=== PATIENT | male | born 1940 | race African-American/Black ===

== ENCOUNTER 2023-10-10 19:08 | Inpatient (IN) | payer OTHER ==
[~2023-10-10] VITALS: Ht 160 cm; Wt 83.9 kg
[2023-10-10 19:31] VITALS: BP_SYST 132; PULSE 79; RESP 19; TEMP 97.9; O2SAT 98
[2023-10-10 20:08] LABS: BASOPHILS % (AUTO) 0.3 % (0.0-2.0); EOSINOPHILS # (AUTO) 0.2 K/uL (0.0-0.4); HEMATOCRIT 42.1 % (36-54); HEMOGLOBIN 14.6 g/dL (14.0-18.0); LYMPHOCYTES # (AUTO) 3.3 K/uL (1.0-5.5); LYMPHOCYTES % (AUTO) 42.8 % (20.5-51.5); MEAN CORPUSCULAR HEMOGLOBIN 32 pg (27-31); MEAN CORPUSCULAR HGB CONC 35 % (32-36); MEAN CORPUSCULAR VOLUME 93 fL (79.0-98.0); MONOCYTES # (AUTO) 0.7 K/uL (0.0-1.0); MONOCYTES % (AUTO) 8.7 % (1.7-9.3); NEUTROPHILS # (AUTO) 3.5 K/uL (1.8-7.7); NEUTROPHILS % (AUTO) 46.2 % (40.0-70.0); PLATELET COUNT (AUTO) 296 K/uL (130-430); RED BLOOD CELL COUNT(AUTO) 4.55 MIL/uL (4.2-6.2); RED CELL DISTRIBUTION WIDTH 13.1 % (9.0-15.0); WHITE BLOOD COUNT (AUTO) 7.7 K/uL (4.8-10.8)
[2023-10-10 20:21] LABS: ANION GAP 9 (5-15); CALCIUM 9.6 mg/dL (8.4-11.0); CARBON DIOXIDE 27 mmol/L (23-29); CHLORIDE 106 mmol/L (98-107); CREATININE 1.04 mg/dL (0.55-1.30); GLUCOSE 108 mg/dL (74-106); POTASSIUM 4.2 mmol/L (3.5-5.1); SODIUM SERUM 142 mmol/L (136-145); UREA NITROGEN, BLOOD 14 mg/dL (8-21)
[2023-10-10 20:27] LABS: ALANINE AMINOTRANSFERASE 36 U/L (12-78); ALBUMIN 3.7 g/dL (3.4-4.8); ASPARTATE AMINOTRANSFERASE 13 U/L (10-37); BILIRUBIN,DIRECT 0.2 mg/dL (0.0-0.3); CREATINE KINASE, TOTAL 76 U/L (39-308); TOTAL BILIRUBIN 0.8 mg/dL (0.0-1.0); TOTAL PROTEIN, SERUM 7.1 g/dL (6.4-8.3)
[2023-10-10 20:35] LABS: INR 1.1 (0.80-1.20); PROTHROMBIN TIME 11.1 SECS (9.5-12.5)
[2023-10-10 20:39] LABS: ACETONE, SERUM NEGATIVE (NEGATIVE)
[2023-10-10 21:38] LABS: BILIRUBIN,URINE NEGATIVE (NEGATIVE); BLOOD, URINE NEGATIVE (NEGATIVE); CLARITY/URINE CLEAR (CLEAR); COLOR,URINE YELLOW (YELLOW); GLUCOSE,URINE NEGATIVE (NEGATIVE); KETONES,URINE 2+ (NEGATIVE); LEUKOCYTE ESTERASE ,URINE TRACE (NEGATIVE); NITRITE, URINE POSITIVE (NEGATIVE); PROTEIN URINE 1+ (NEGATIVE)
[2023-10-10] MEDS ORDERED: ASPIRIN 81 MG TAB.CHEW PO ONE (21:45)
[2023-10-10 21:46] LABS: BACTERIA,URINE MODERATE /HPF (None Seen); MUCUS,URINE None Seen /LPF (None Seen); RBC,URINE NONE SEEN /HPF (0-3)
[2023-10-10] MEDS ORDERED: LORazepam 2 MG/ML VIAL IVP ONE (22:00)
[2023-10-10] MEDS ORDERED: HYDROcodone/ACETAMIN 10-325 MG TAB PO PRN (22:15)
[2023-10-10] MEDS ORDERED: ACETAMINOPHEN 325 MG TABLET PO PRN (22:15)
[2023-10-10] MEDS ORDERED: HYDROcodone/ACETAMIN 5-325 MG TAB (NORCO/ VICODIN) PO PRN (22:15)
[2023-10-10] MEDS ORDERED: MORPHINE 4 MG INJ. 4 MG/ML VIAL IVP PRN (22:15)
[2023-10-10] MEDS ORDERED: NACL 0.9% 1,000 ML IV ONE (22:15)
[2023-10-10] MEDS ORDERED: ONDANSETRON HCL 4 MG/2 ML VIAL IVP PRN (22:15)
[2023-10-10] MEDS ORDERED: OLME40TA70 PO (22:45)
[2023-10-10] MEDS ORDERED: NIFE-129 PO (22:45)
[2023-10-10] MEDS ORDERED: CARV6.2554 PO (22:45)
[2023-10-10] MEDS ORDERED: IBUP-1969 PO (22:45)
[2023-10-10] MEDS ORDERED: HYDR-4037 PO (22:45)
[2023-10-10] MEDS ORDERED: PIOG30TA70 PO (22:45)
[2023-10-11 04:14] LABS: BASOPHILS % (AUTO) 0.5 % (0.0-2.0); EOSINOPHILS # (AUTO) 0.1 K/uL (0.0-0.4); EOSINOPHILS % (AUTO) 1.3 % (0.0-4.0); HEMATOCRIT 38.6 % (36-54); HEMOGLOBIN 13.3 g/dL (14.0-18.0); LYMPHOCYTES # (AUTO) 3.6 K/uL (1.0-5.5); LYMPHOCYTES % (AUTO) 40.6 % (20.5-51.5); MEAN CORPUSCULAR HEMOGLOBIN 32 pg (27-31); MEAN CORPUSCULAR HGB CONC 34 % (32-36); MEAN CORPUSCULAR VOLUME 93 fL (79.0-98.0); MONOCYTES # (AUTO) 0.8 K/uL (0.0-1.0); MONOCYTES % (AUTO) 9.3 % (1.7-9.3); NEUTROPHILS # (AUTO) 4.2 K/uL (1.8-7.7); NEUTROPHILS % (AUTO) 48.3 % (40.0-70.0); PLATELET COUNT (AUTO) 270 K/uL (130-430); RED BLOOD CELL COUNT(AUTO) 4.14 MIL/uL (4.2-6.2); RED CELL DISTRIBUTION WIDTH 13.2 % (9.0-15.0); WHITE BLOOD COUNT (AUTO) 8.8 K/uL (4.8-10.8)
[2023-10-11 04:32] LABS: ALANINE AMINOTRANSFERASE 32 U/L (12-78); ALBUMIN 3.3 g/dL (3.4-4.8); ANION GAP 11 (5-15); ASPARTATE AMINOTRANSFERASE 15 U/L (10-37); CALCIUM 8.5 mg/dL (8.4-11.0); CARBON DIOXIDE 25 mmol/L (23-29); CHLORIDE 108 mmol/L (98-107); CREATININE 1.06 mg/dL (0.55-1.30); GLUCOSE 101 mg/dL (74-106); POTASSIUM 3.5 mmol/L (3.5-5.1); SODIUM SERUM 144 mmol/L (136-145); TOTAL BILIRUBIN 0.7 mg/dL (0.0-1.0); TOTAL PROTEIN, SERUM 6.5 g/dL (6.4-8.3); UREA NITROGEN, BLOOD 21 mg/dL (8-21)
[2023-10-11] MEDS: ASPIRIN 81 MG TAB.CHEW PO SCH (09:32)
[2023-10-11] MEDS ORDERED: cefTRIAXone 1 GM in D5W 50 ML IV SCH (13:00)
[2023-10-11] MEDS ORDERED: GLUCOSE (DEXTROSE) ORAL GEL -Adults PO PRN (13:00)
[2023-10-11] MEDS ORDERED: DEXTROSE 50% JECT 50 ML DISP.SYRIN IVP PRN (13:00)
[2023-10-11] MEDS ORDERED: INSULIN REGULAR, HUMAN 100 UNITS/ML, 3 ML VIAL (humuLIN R) SUBCUT PRN (13:00)
[2023-10-11] MEDS ORDERED: NIFEdipine 30 MG TAB.ER.24 PO ONE (13:15)
[2023-10-11] MEDS ORDERED: PANTOPRAZOLE SODIUM 40 MG TAB PO ONE (13:15)
[2023-10-11] MEDS ORDERED: CARVEDILOL 6.25 MG TABLET (COREG) PO ONE (13:15)
[2023-10-11] MEDS: cefTRIAXone 1 GM in D5W 50 ML IV SCH (13:51)
[2023-10-11] MEDS ORDERED: cefTRIAXone 1 GM in D5W 50 ML IV ONE (14:00)
[2023-10-11] MEDS: NACL 0.9% 1,000 ML IV SCH ×2 (14:03→23:00)
[2023-10-11] MEDS ORDERED: hydrALAZINE HCL 20 MG/ML VIAL IVP PRN (15:15)
[2023-10-11 16:16] VITALS: BP_SYST 160; PULSE 79; RESP 18; TEMP 99; O2SAT 98
[2023-10-11 20:00] VITALS: BP_SYST 165; PULSE 84; RESP 18; TEMP 97.7; O2SAT 95
[2023-10-11] MEDS: CARVEDILOL 6.25 MG TABLET (COREG) PO SCH (20:29)
[2023-10-11 21:00] VITALS: BP_SYST 157; PULSE 87; RESP 18; TEMP 97.5; O2SAT 96
[2023-10-12] VITALS: BP_SYST 153; PULSE 83; RESP 18; TEMP 98; O2SAT 99
[2023-10-12 06:27] LABS: BASOPHILS % (AUTO) 0.7 % (0.0-2.0); EOSINOPHILS # (AUTO) 0.2 K/uL (0.0-0.4); EOSINOPHILS % (AUTO) 3.5 % (0.0-4.0); HEMATOCRIT 41.4 % (36-54); HEMOGLOBIN 14.2 g/dL (14.0-18.0); LYMPHOCYTES # (AUTO) 3.4 K/uL (1.0-5.5); MEAN CORPUSCULAR HEMOGLOBIN 32 pg (27-31); MEAN CORPUSCULAR HGB CONC 34 % (32-36); MEAN CORPUSCULAR VOLUME 93 fL (79.0-98.0); MONOCYTES # (AUTO) 0.5 K/uL (0.0-1.0); MONOCYTES % (AUTO) 7.2 % (1.7-9.3); NEUTROPHILS # (AUTO) 2.9 K/uL (1.8-7.7); NEUTROPHILS % (AUTO) 40.6 % (40.0-70.0); PLATELET COUNT (AUTO) 274 K/uL (130-430); RED BLOOD CELL COUNT(AUTO) 4.45 MIL/uL (4.2-6.2); RED CELL DISTRIBUTION WIDTH 13.4 % (9.0-15.0); WHITE BLOOD COUNT (AUTO) 7.1 K/uL (4.8-10.8)
[2023-10-12 06:35] LABS: ALANINE AMINOTRANSFERASE 33 U/L (12-78); ALBUMIN 3.4 g/dL (3.4-4.8); ANION GAP 9 (5-15); ASPARTATE AMINOTRANSFERASE 14 U/L (10-37); CALCIUM 9.3 mg/dL (8.4-11.0); CARBON DIOXIDE 25 mmol/L (23-29); CHLORIDE 109 mmol/L (98-107); CREATININE 0.91 mg/dL (0.55-1.30); GLUCOSE 115 mg/dL (74-106); POTASSIUM 3.6 mmol/L (3.5-5.1); SODIUM SERUM 143 mmol/L (136-145); TOTAL BILIRUBIN 0.8 mg/dL (0.0-1.0); TOTAL PROTEIN, SERUM 6.8 g/dL (6.4-8.3); UREA NITROGEN, BLOOD 10 mg/dL (8-21)
[2023-10-12 08:00] VITALS: BP_SYST 157; PULSE 92; RESP 18; TEMP 98.8; O2SAT 95
[2023-10-12] MEDS: ASPIRIN 81 MG TAB.CHEW PO SCH (09:21)
[2023-10-12] MEDS: NACL 0.9% 1,000 ML IV SCH ×2 (09:21→20:02)
[2023-10-12] MEDS: PANTOPRAZOLE SODIUM 40 MG TAB PO SCH (09:22)
[2023-10-12] MEDS: CARVEDILOL 6.25 MG TABLET (COREG) PO SCH ×2 (09:22→21:02)
[2023-10-12] MEDS: NIFEdipine 30 MG TAB.ER.24 PO SCH (09:32)
[2023-10-12 11:01] VITALS: O2SAT 95
[2023-10-12 11:16] VITALS: BP_SYST 166; PULSE 90; RESP 16; TEMP 97.9; O2SAT 98
[2023-10-12] MEDS: cefTRIAXone 1 GM in D5W 50 ML IV SCH (15:18)
[2023-10-12 15:26] VITALS: BP_SYST 177; PULSE 89; RESP 15; TEMP 96.6; O2SAT 96
[2023-10-12 20:00] VITALS: BP_SYST 156; PULSE 93; RESP 18; TEMP 98.2; O2SAT 98
[2023-10-13] VITALS: BP_SYST 166; PULSE 86; RESP 18; TEMP 98.3; O2SAT 97
[2023-10-13 04:00] VITALS: BP_SYST 159; PULSE 84; RESP 18; TEMP 98; O2SAT 98
[2023-10-13] MEDS: NACL 0.9% 1,000 ML IV SCH (05:00)
[2023-10-13 05:42] LABS: BASOPHILS % (AUTO) 0.6 % (0.0-2.0); EOSINOPHILS # (AUTO) 0.3 K/uL (0.0-0.4); EOSINOPHILS % (AUTO) 3.6 % (0.0-4.0); HEMATOCRIT 41.7 % (36-54); HEMOGLOBIN 14.4 g/dL (14.0-18.0); LYMPHOCYTES # (AUTO) 3.4 K/uL (1.0-5.5); LYMPHOCYTES % (AUTO) 47.1 % (20.5-51.5); MEAN CORPUSCULAR HEMOGLOBIN 32 pg (27-31); MEAN CORPUSCULAR HGB CONC 35 % (32-36); MEAN CORPUSCULAR VOLUME 93 fL (79.0-98.0); MONOCYTES # (AUTO) 0.4 K/uL (0.0-1.0); MONOCYTES % (AUTO) 6.1 % (1.7-9.3); NEUTROPHILS # (AUTO) 3.1 K/uL (1.8-7.7); NEUTROPHILS % (AUTO) 42.6 % (40.0-70.0); PLATELET COUNT (AUTO) 288 K/uL (130-430); RED BLOOD CELL COUNT(AUTO) 4.49 MIL/uL (4.2-6.2); RED CELL DISTRIBUTION WIDTH 13.1 % (9.0-15.0); WHITE BLOOD COUNT (AUTO) 7.2 K/uL (4.8-10.8)
[2023-10-13 06:12] LABS: ALANINE AMINOTRANSFERASE 30 U/L (12-78); ALBUMIN 3.4 g/dL (3.4-4.8); ANION GAP 12 (5-15); ASPARTATE AMINOTRANSFERASE 13 U/L (10-37); CALCIUM 9.1 mg/dL (8.4-11.0); CARBON DIOXIDE 25 mmol/L (23-29); CHLORIDE 106 mmol/L (98-107); CREATININE 0.87 mg/dL (0.55-1.30); GLUCOSE 124 mg/dL (74-106); POTASSIUM 3.1 mmol/L (3.5-5.1); SODIUM SERUM 143 mmol/L (136-145); TOTAL BILIRUBIN 0.7 mg/dL (0.0-1.0); UREA NITROGEN, BLOOD 10 mg/dL (8-21)
[2023-10-13 08:00] VITALS: BP_SYST 163; PULSE 101; RESP 18; TEMP 98.5; O2SAT 98
[2023-10-13] MEDS: PANTOPRAZOLE SODIUM 40 MG TAB PO SCH (09:44)
[2023-10-13] MEDS: CARVEDILOL 6.25 MG TABLET (COREG) PO SCH (09:44)
[2023-10-13] MEDS: ASPIRIN 81 MG TAB.CHEW PO SCH (09:44)
[2023-10-13] MEDS: NIFEdipine 30 MG TAB.ER.24 PO SCH (09:45)
[2023-10-13] MEDS ORDERED: CARVEDILOL 6.25 MG TABLET (COREG) PO ONE (10:30)
[2023-10-13] MEDS ORDERED: NIFEdipine 30 MG TAB.ER.24 PO ONE (11:00)
[2023-10-13] MEDS ORDERED: ASA81 PO (11:34)
[2023-10-13] MEDS ORDERED: COR12.5 PO (11:34)
[2023-10-13] MEDS ORDERED: NIFE90TA24 PO (11:34)
[2023-10-13 12:01] VITALS: BP_SYST 154; PULSE 91; RESP 17; O2SAT 98
[2023-10-13] MEDS: cefTRIAXone 1 GM in D5W 50 ML IV SCH (15:09)
[2023-10-13 18:30] VITALS: BP_SYST 136; PULSE 113; RESP 17; TEMP 98.5; O2SAT 98
[2023-10-13] MEDS ORDERED: CARVEDILOL 12.5 MG TABLET (COREG) PO SCH (21:00)
[2023-10-14] MEDS ORDERED: NIFEDIPINE 90 MG TABLET.SA (PROCARDIA XL 90 MG) PO SCH (09:00)
== END 2023-10-13 19:15 | disposition home or self-care (01) | DRG 641 ==
LOC: SED 19:08 → STU 22:07 → SMU 10-11 16:18 → STU 10-11 20:11 → SMU 10-13 02:01
PROVIDERS: ADMIT Family Medicine; ATTEND Family Medicine
DX: E86.0 Dehydration (principal); N39.0 Urinary tract infection, site not specified; I10 Essential (primary) hypertension; E11.9 Type 2 diabetes mellitus without complications; E78.5 Hyperlipidemia, unspecified; Z88.8 Allergy status to other drugs, medicaments and biological substances; Z91.013 Allergy to seafood; Z85.46 Personal history of malignant neoplasm of prostate; Z90.79 Acquired absence of other genital organ(s); Z87.891 Personal history of nicotine dependence; Z90.49 Acquired absence of other specified parts of digestive tract
CPT/HCPCS: 36415; 70450-TC; 71045; 76376; 80048; 80053; 80076; 81000; 81001; 81015; 82009; 82550; 82962; 83037; 83605; 84484; 85025; 85610; 85730; 87086; 92610-GN; 93005; 93306; 93880; 96361; 96365; 97116-GP; 97530-GP; 99285; G0378; J0696; J7060

== ENCOUNTER 2023-10-19 02:15 | Inpatient (IN) | payer OTHER ==
[~2023-10-19] VITALS: Ht 160 cm; Wt 84.4 kg
[~2023-10-19 02:15] MED LIST: ASA81 PO; COR12.5 PO; HYDR-4037 PO; IBUP-1969 PO; NIFE90TA24 PO; OLME40TA70 PO; PIOG30TA70 PO
[2023-10-19 02:18] VITALS: BP_SYST 157; PULSE 89; RESP 19; TEMP 97.9; O2SAT 97
[2023-10-19] MEDS ORDERED: iohexoL 350 mgI/mL, 100 ML INFUS..BTL IV ONE (02:45)
[2023-10-19] MEDS ORDERED: DIPHENHYDRAMINE INJ 50 MG/ML VIAL ONE (02:45)
[2023-10-19] MEDS ORDERED: methylPREDNISolone SOD SUCC/PF 62.5 MG/ML VIAL ONE (02:45)
[2023-10-19 02:53] LABS: ANION GAP 11 (5-15); CALCIUM 9.5 mg/dL (8.4-11.0); CARBON DIOXIDE 24 mmol/L (23-29); CHLORIDE 107 mmol/L (98-107); CREATININE 0.99 mg/dL (0.55-1.30); GLUCOSE 131 mg/dL (74-106); POTASSIUM 3.7 mmol/L (3.5-5.1); SODIUM SERUM 142 mmol/L (136-145); UREA NITROGEN, BLOOD 13 mg/dL (8-21)
[2023-10-19 03:05] LABS: INR 1.1 (0.80-1.20)
[2023-10-19] MEDS: DIPHENHYDRAMINE INJ 50 MG/ML VIAL IVP ONE (03:06)
[2023-10-19] MEDS: methylPREDNISolone SOD SUCC/PF 62.5 MG/ML VIAL IVP ONE (03:07)
[2023-10-19 03:32] LABS: BILIRUBIN,URINE NEGATIVE (NEGATIVE); BLOOD, URINE NEGATIVE (NEGATIVE); CLARITY/URINE CLEAR (CLEAR); COLOR,URINE YELLOW (YELLOW); GLUCOSE,URINE NEGATIVE (NEGATIVE); KETONES,URINE NEGATIVE (NEGATIVE); LEUKOCYTE ESTERASE ,URINE NEGATIVE (NEGATIVE); NITRITE, URINE NEGATIVE (NEGATIVE); PROTEIN URINE NEGATIVE (NEGATIVE); UROBILINOGEN,URINE 0.2 (0.2-1.0)
[2023-10-19 03:51] LABS: BARBITURATE, URINE NEGATIVE (NEG <=200); BENZODIAZEPINE, URINE NEGATIVE (NEG <=150); CANNABINOID, URINE NEGATIVE (NEG <=50); COCAINE, URINE NEGATIVE (NEG <=150); METHAMPHETAMINES SCREEN,URINE NEGATIVE (NEG <=500); OPIATE, URINE NEGATIVE (NEG <=100); PHENCYCLIDINE SCREEN,URINE NEGATIVE (NEG <=25); UR TRICYCLIC ANTIDEPRESSANTS NEGATIVE (NEG <=300); URINE AMPHETAMINE NEGATIVE (NEG <=500); URINE METHADONE NEGATIVE (NEG <=200); URINE OXYCODONE SCREEN NEGATIVE (NEG <=100)
[2023-10-19] MEDS: CLOPIDOGREL BISULFATE 75 MG TABLET PO ONE (03:58)
[2023-10-19] MEDS: ASPIRIN 325 MG TABLET PO ONE (03:58)
[2023-10-19 04:10] LABS: BASOPHILS % (AUTO) 0.6 % (0.0-2.0); EOSINOPHILS # (AUTO) 0.2 K/uL (0.0-0.4); EOSINOPHILS % (AUTO) 2.9 % (0.0-4.0); HEMATOCRIT 40.4 % (36-54); LYMPHOCYTES # (AUTO) 2.9 K/uL (1.0-5.5); LYMPHOCYTES % (AUTO) 41.1 % (20.5-51.5); MEAN CORPUSCULAR HEMOGLOBIN 32 pg (27-31); MEAN CORPUSCULAR HGB CONC 35 % (32-36); MEAN CORPUSCULAR VOLUME 93 fL (79.0-98.0); MONOCYTES # (AUTO) 0.7 K/uL (0.0-1.0); MONOCYTES % (AUTO) 9.1 % (1.7-9.3); NEUTROPHILS # (AUTO) 3.3 K/uL (1.8-7.7); NEUTROPHILS % (AUTO) 46.3 % (40.0-70.0); PLATELET COUNT (AUTO) 272 K/uL (130-430); RED BLOOD CELL COUNT(AUTO) 4.37 MIL/uL (4.2-6.2); RED CELL DISTRIBUTION WIDTH 13.1 % (9.0-15.0); WHITE BLOOD COUNT (AUTO) 7.2 K/uL (4.8-10.8)
[2023-10-19 04:20] LABS: HEMOGLOBIN A1C 6.33 % (<5.7)
[2023-10-19] MEDS ORDERED: ONDANSETRON HCL 4 MG/2 ML VIAL IVP PRN (13:00)
[2023-10-19] MEDS ORDERED: HYDROcodone/ACETAMIN 5-325 MG TAB (NORCO/ VICODIN) PO PRN (13:00)
[2023-10-19] MEDS ORDERED: ACETAMINOPHEN 325 MG TABLET PO PRN ×2 (13:00→13:30)
[2023-10-19] MEDS ORDERED: LORazepam 2 MG/ML VIAL IVP PRN (13:00)
[2023-10-19] MEDS ORDERED: NALOXONE HCL 0.4 MG/ML AMP (NARCAN) IVP PRN ×2 (13:00)
[2023-10-19] MEDS: NORMAL SALINE 5 ML DISP.SYRIN IVF SCH (14:23)
[2023-10-19] MEDS: ASPIRIN 81 MG TAB.CHEW PO ONE (14:23)
[2023-10-19] MEDS: PIOGLITAZONE HCL 15 MG TABLET PO ONE (15:38)
[2023-10-19] MEDS ORDERED: INSULIN REGULAR, HUMAN 10 UNITS/0.1 ML, 3 ML VIAL ONE (17:22)
[2023-10-19] MEDS: INSULIN REGULAR, HUMAN 100 UNITS/ML, 3 ML VIAL (humuLIN R) SUBCUT PRN (17:25)
[2023-10-19] MEDS: CARVEDILOL 12.5 MG TABLET (COREG) PO SCH (20:29)
[2023-10-19] MEDS: LOSARTAN POTASSIUM 50 MG TABLET (COZAAR) PO SCH (20:30)
[2023-10-19] MEDS: ATORVASTATIN 20 MG TABLET PO SCH (20:31)
[2023-10-19] MEDS ORDERED: OLMESARTAN MEDOXOMIL 20 MG TABLET PO SCH (21:00)
[2023-10-20] MEDS: cloNIDine HCL 0.2 MG TABLET PO PRN (00:40)
[2023-10-20] MEDS ORDERED: cloNIDine HCL 0.1 MG TABLET ONE (00:41)
[2023-10-20] MEDS: HYDROcodone/ACETAMIN 10-325 MG TAB PO PRN (00:42)
[2023-10-20] MEDS ORDERED: HYDROcodone/ACETAMIN 10-325 MG TAB ONE (00:48)
[2023-10-20 08:13] LABS: BASOPHILS # (AUTO) 0.1 K/uL (0.0-0.2); BASOPHILS % (AUTO) 0.5 % (0.0-2.0); EOSINOPHILS % (AUTO) 0.4 % (0.0-4.0); HEMATOCRIT 40.9 % (36-54); LYMPHOCYTES # (AUTO) 3.7 K/uL (1.0-5.5); LYMPHOCYTES % (AUTO) 28.6 % (20.5-51.5); MEAN CORPUSCULAR HEMOGLOBIN 32 pg (27-31); MEAN CORPUSCULAR HGB CONC 34 % (32-36); MEAN CORPUSCULAR VOLUME 93 fL (79.0-98.0); MONOCYTES # (AUTO) 0.9 K/uL (0.0-1.0); MONOCYTES % (AUTO) 7.1 % (1.7-9.3); NEUTROPHILS # (AUTO) 8.1 K/uL (1.8-7.7); NEUTROPHILS % (AUTO) 63.4 % (40.0-70.0); PLATELET COUNT (AUTO) 273 K/uL (130-430); RED BLOOD CELL COUNT(AUTO) 4.39 MIL/uL (4.2-6.2); RED CELL DISTRIBUTION WIDTH 13.1 % (9.0-15.0); WHITE BLOOD COUNT (AUTO) 12.8 K/uL (4.8-10.8)
[2023-10-20 08:44] LABS: ALANINE AMINOTRANSFERASE 21 U/L (12-78); ALBUMIN 3.2 g/dL (3.4-4.8); ANION GAP 10 (5-15); ASPARTATE AMINOTRANSFERASE 16 U/L (10-37); CALCIUM 8.8 mg/dL (8.4-11.0); CARBON DIOXIDE 24 mmol/L (23-29); CHLORIDE 105 mmol/L (98-107); CREATININE 0.96 mg/dL (0.55-1.30); GLUCOSE 112 mg/dL (74-106); PHOSPHORUS 3.8 mg/dL (2.7-4.5); POTASSIUM 3.5 mmol/L (3.5-5.1); SODIUM SERUM 139 mmol/L (136-145); TOTAL BILIRUBIN 0.6 mg/dL (0.0-1.0); TOTAL PROTEIN, SERUM 7.1 g/dL (6.4-8.3); UREA NITROGEN, BLOOD 15 mg/dL (8-21)
[2023-10-20] MEDS ORDERED: NIFEDIPINE 90 MG TABLET.SA (PROCARDIA XL 90 MG) PO SCH (09:00)
[2023-10-20] MEDS: CLOPIDOGREL BISULFATE 75 MG TABLET PO SCH (09:20)
[2023-10-20] MEDS: PIOGLITAZONE HCL 15 MG TABLET PO SCH (09:21)
[2023-10-20] MEDS: ASPIRIN 81 MG TABLET(ECOTRIN) PO SCH (09:21)
[2023-10-20 09:46] LABS: CHOLESTEROL 145 mg/dL (<200); HDL CHOLESTEROL 48 mg/dL (>45); TRIGLYCERIDES 80 mg/dL (30-150)
[2023-10-20 15:52] VITALS: BP_SYST 184; PULSE 68; RESP 20; TEMP 97.9; O2SAT 98
[2023-10-20 18:10] VITALS: BP_SYST 184; PULSE 68; RESP 20; TEMP 97.9; O2SAT 98
[2023-10-20 20:00] VITALS: BP_SYST 174; PULSE 81; RESP 18; TEMP 97.8; O2SAT 96
[2023-10-21 00:32] VITALS: BP_SYST 158; PULSE 81; RESP 17; TEMP 96.6; O2SAT 99
[2023-10-21 06:28] LABS: BASOPHILS % (AUTO) 0.5 % (0.0-2.0); EOSINOPHILS # (AUTO) 0.2 K/uL (0.0-0.4); EOSINOPHILS % (AUTO) 2.2 % (0.0-4.0); HEMATOCRIT 37.9 % (36-54); HEMOGLOBIN 13.3 g/dL (14.0-18.0); LYMPHOCYTES # (AUTO) 3.6 K/uL (1.0-5.5); LYMPHOCYTES % (AUTO) 43.4 % (20.5-51.5); MEAN CORPUSCULAR HEMOGLOBIN 32 pg (27-31); MEAN CORPUSCULAR HGB CONC 35 % (32-36); MEAN CORPUSCULAR VOLUME 93 fL (79.0-98.0); MONOCYTES # (AUTO) 0.6 K/uL (0.0-1.0); MONOCYTES % (AUTO) 7.2 % (1.7-9.3); NEUTROPHILS # (AUTO) 3.9 K/uL (1.8-7.7); NEUTROPHILS % (AUTO) 46.7 % (40.0-70.0); PLATELET COUNT (AUTO) 262 K/uL (130-430); RED CELL DISTRIBUTION WIDTH 13.3 % (9.0-15.0); WHITE BLOOD COUNT (AUTO) 8.3 K/uL (4.8-10.8)
[2023-10-21 06:46] LABS: ALANINE AMINOTRANSFERASE 21 U/L (12-78); ALBUMIN 2.9 g/dL (3.4-4.8); ANION GAP 10 (5-15); ASPARTATE AMINOTRANSFERASE 8 U/L (10-37); CALCIUM 9.2 mg/dL (8.4-11.0); CARBON DIOXIDE 26 mmol/L (23-29); CHLORIDE 107 mmol/L (98-107); CREATININE 0.98 mg/dL (0.55-1.30); GLUCOSE 108 mg/dL (74-106); SODIUM SERUM 143 mmol/L (136-145); TOTAL BILIRUBIN 0.6 mg/dL (0.0-1.0); TOTAL PROTEIN, SERUM 6.2 g/dL (6.4-8.3); UREA NITROGEN, BLOOD 18 mg/dL (8-21)
[2023-10-21 08:00] VITALS: BP_SYST 162; PULSE 80; RESP 16; TEMP 98.4; O2SAT 96
[2023-10-21] MEDS: POTASSIUM CHLORIDE 20 MEQ/PKT PACKET PO ONE ×2 (10:45→16:50)
[2023-10-21] MEDS: LOSARTAN POTASSIUM 25 MG TABLET PO ONE (10:45)
[2023-10-21 12:00] VITALS: BP_SYST 172; PULSE 65; RESP 16; TEMP 98; O2SAT 98
[2023-10-21] MEDS ORDERED: LOSA-412 PO (14:10)
[2023-10-21] MEDS ORDERED: CLOP75TA32 PO (14:10)
[2023-10-21] MEDS ORDERED: LIP20 PO (14:10)
[2023-10-21] MEDS ORDERED: POTA-197 PO (14:11)
[2023-10-21 15:27] LABS: ANION GAP 10 (5-15); CARBON DIOXIDE 27 mmol/L (23-29); CHLORIDE 106 mmol/L (98-107); CREATININE 1.03 mg/dL (0.55-1.30); GLUCOSE 124 mg/dL (74-106); POTASSIUM 3.8 mmol/L (3.5-5.1); SODIUM SERUM 143 mmol/L (136-145); UREA NITROGEN, BLOOD 15 mg/dL (8-21)
[2023-10-21 16:02] VITALS: BP_SYST 163; PULSE 65; RESP 17; TEMP 98.4; O2SAT 99
[2023-10-21] MEDS ORDERED: NIFEDIPINE 90 MG TABLET.SA (PROCARDIA XL 90 MG) PO ONE (17:00)
[2023-10-21] MEDS: NIFEDIPINE 90 MG TABLET.SA (PROCARDIA XL 90 MG) PO ONE (17:11)
[2023-10-21] MEDS: cloNIDine HCL 0.1 MG TABLET PO ONE (18:51)
[2023-10-21 20:00] VITALS: BP_SYST 177; PULSE 75; RESP 18; TEMP 98.2; O2SAT 96
[2023-10-21] MEDS ORDERED: LOSA-413 PO (20:28)
[2023-10-21] MEDS: LOSARTAN POTASSIUM 50 MG TABLET (COZAAR) PO SCH (20:29)
[2023-10-21] MEDS ORDERED: hydrALAZINE HCL 20 MG/ML VIAL IVP PRN (20:45)
[2023-10-21] MEDS ORDERED: LOSARTAN POTASSIUM 25 MG TABLET PO SCH (21:00)
[2023-10-22] VITALS: BP_SYST 139; PULSE 72; RESP 18; TEMP 98; O2SAT 95
[2023-10-22 04:00] VITALS: BP_SYST 139
[2023-10-22 05:30] VITALS: BP_SYST 141; PULSE 75; RESP 18; TEMP 98.2; O2SAT 97
[2023-10-22 08:00] VITALS: BP_SYST 135; PULSE 76; RESP 17; TEMP 98.2; O2SAT 98
[2023-10-22 08:01] VITALS: O2SAT 98
[2023-10-22 11:19] VITALS: BP_SYST 116; PULSE 73; RESP 16; TEMP 98.5; O2SAT 97
== END 2023-10-22 14:00 | disposition home or self-care (01) | DRG 69 ==
LOC: SED 02:15 → STU 04:08 → SMU 10-21 23:29
PROVIDERS: ADMIT Preventive Medicine Preventive Medicine/Occupational Environmental Medicine; ATTEND Preventive Medicine Preventive Medicine/Occupational Environmental Medicine
DX: G45.9 Transient cerebral ischemic attack, unspecified (principal); E44.0 Moderate protein-calorie malnutrition; E11.9 Type 2 diabetes mellitus without complications; R29.702 NIHSS score 2; E78.5 Hyperlipidemia, unspecified; I10 Essential (primary) hypertension; Z85.46 Personal history of malignant neoplasm of prostate; Z91.013 Allergy to seafood; Z88.8 Allergy status to other drugs, medicaments and biological substances
CPT/HCPCS: 36415; 70450; 70496; 70498; 70551; 71045; 76376; 80048; 80053; 80061; 80307; 81001; 81003; 82962; 83037; 83735; 84100; 84484; 85025; 85610; 85730; 86886; 86900; 86901; 87081; 93005; 97112-GP; 97116-GP; 99285; G0378; J1200; J1815; J2930; Q9967

== ENCOUNTER 2023-11-19 02:14 | Inpatient (IN) | payer OTHER ==
[~2023-11-19] VITALS: Ht 160 cm; Wt 83.9 kg
[2023-11-19] VITALS (10 sets, daily range): BP systolic 110–127; PULSE 80–96; RESP 16–20; TEMP 97.8–98.6; O2SAT 95–100
[~2023-11-19 02:14] MED LIST changes: +CLOP75TA32 PO; -HYDR-4037 PO; -IBUP-1969 PO; +LIP20 PO; +LOSA-412 PO; +LOSA-413 PO; +POTA-197 PO
[2023-11-19 03:17] LABS: BASOPHILS % (AUTO) 0.2 % (0.0-2.0); HEMATOCRIT 35.7 % (36-54); HEMOGLOBIN 12.4 g/dL (14.0-18.0); LYMPHOCYTES # (AUTO) 1.7 K/uL (1.0-5.5); LYMPHOCYTES % (AUTO) 11.4 % (20.5-51.5); MEAN CORPUSCULAR HEMOGLOBIN 32 pg (27-31); MEAN CORPUSCULAR HGB CONC 35 % (32-36); MEAN CORPUSCULAR VOLUME 92 fL (79.0-98.0); MONOCYTES # (AUTO) 0.9 K/uL (0.0-1.0); MONOCYTES % (AUTO) 6.2 % (1.7-9.3); NEUTROPHILS # (AUTO) 12.2 K/uL (1.8-7.7); NEUTROPHILS % (AUTO) 82.2 % (40.0-70.0); PLATELET COUNT (AUTO) 231 K/uL (130-430); RED BLOOD CELL COUNT(AUTO) 3.88 MIL/uL (4.2-6.2); RED CELL DISTRIBUTION WIDTH 13.3 % (9.0-15.0); WHITE BLOOD COUNT (AUTO) 14.8 K/uL (4.8-10.8)
[2023-11-19 03:47] LABS: ALANINE AMINOTRANSFERASE 20 U/L (12-78); ALBUMIN 2.9 g/dL (3.4-4.8); ANION GAP 11 (5-15); ASPARTATE AMINOTRANSFERASE 17 U/L (10-37); CALCIUM 8.4 mg/dL (8.4-11.0); CARBON DIOXIDE 22 mmol/L (23-29); CHLORIDE 105 mmol/L (98-107); CREATININE 1.12 mg/dL (0.55-1.30); GLUCOSE 148 mg/dL (74-106); POTASSIUM 3.7 mmol/L (3.5-5.1); SODIUM SERUM 138 mmol/L (136-145); TOTAL BILIRUBIN 1.2 mg/dL (0.0-1.0); TOTAL PROTEIN, SERUM 6.5 g/dL (6.4-8.3); UREA NITROGEN, BLOOD 18 mg/dL (8-21)
[2023-11-19 03:48] LABS: BILIRUBIN,DIRECT 0.3 mg/dL (0.0-0.3)
[2023-11-19 03:49] LABS: ALCOHOL, BLOOD < 3 mg/dL (<10)
[2023-11-19 03:51] LABS: INR 1.1 (0.80-1.20); PROTHROMBIN TIME 11.5 SECS (9.5-12.5)
[2023-11-19 06:23] LABS: BILIRUBIN,URINE 1+ (NEGATIVE); BLOOD, URINE NEGATIVE (NEGATIVE); CLARITY/URINE SL CLOUDY (CLEAR); COLOR,URINE YELLOW (YELLOW); GLUCOSE,URINE NEGATIVE (NEGATIVE); KETONES,URINE TRACE (NEGATIVE); LEUKOCYTE ESTERASE ,URINE NEGATIVE (NEGATIVE); NITRITE, URINE NEGATIVE (NEGATIVE); PROTEIN URINE 1+ (NEGATIVE)
[2023-11-19] MEDS ORDERED: D5/0.45 NS 1,000 ML IV SCH (06:30)
[2023-11-19 06:53] LABS: BARBITURATE, URINE NEGATIVE (NEG <=200); BENZODIAZEPINE, URINE NEGATIVE (NEG <=150); CANNABINOID, URINE NEGATIVE (NEG <=50); COCAINE, URINE NEGATIVE (NEG <=150); METHAMPHETAMINES SCREEN,URINE NEGATIVE (NEG <=500); OPIATE, URINE NEGATIVE (NEG <=100); PHENCYCLIDINE SCREEN,URINE NEGATIVE (NEG <=25); UR TRICYCLIC ANTIDEPRESSANTS NEGATIVE (NEG <=300); URINE AMPHETAMINE NEGATIVE (NEG <=500); URINE METHADONE NEGATIVE (NEG <=200); URINE OXYCODONE SCREEN NEGATIVE (NEG <=100)
[2023-11-19 07:12] LABS: RBC,URINE NONE SEEN /HPF (0-3)
[2023-11-19 07:13] LABS: BACTERIA,URINE MANY /HPF (None Seen)
[2023-11-19] MEDS: NACL 0.9% 1,000 ML IV SCH (09:39)
[2023-11-19] MEDS: LOSARTAN POTASSIUM 50 MG TABLET (COZAAR) PO SCH (09:40)
[2023-11-19] MEDS: CLOPIDOGREL BISULFATE 75 MG TABLET PO SCH (09:40)
[2023-11-19] MEDS: ASPIRIN 81 MG TAB.CHEW PO SCH (09:40)
[2023-11-19] MEDS ORDERED: LOSA-412 PO (11:28)
[2023-11-19] MEDS ORDERED: LIP80 PO (11:28)
[2023-11-19] MEDS ORDERED: HYDR-4037 PO (11:38)
[2023-11-19] MEDS ORDERED: HYDR-4038 PO (11:38)
[2023-11-19] MEDS ORDERED: COR12.5 PO (11:43)
[2023-11-19] MEDS ORDERED: NIFE90TA24 PO (11:43)
[2023-11-19] MEDS ORDERED: LOSA-413 PO (12:17)
[2023-11-19] MEDS: cefTRIAXone 1 GM IVPB PREMIX 50 ML IV SCH (14:58)
[2023-11-19] MEDS: AZITHROMYCIN 250 MG in NS 250 ML IV SCH (14:59)
[2023-11-19] MEDS: ATORVASTATIN 20 MG TABLET PO SCH (21:54)
[2023-11-19] MEDS: levalbuterol HCL 0.63 MG/3 ML VIAL.NEB INH SCH (23:37)
[2023-11-20] VITALS (7 sets, daily range): BP systolic 128–151; PULSE 80–97; RESP 16–18; TEMP 97.8–98.5; O2SAT 92–98
[2023-11-20 06:14] LABS: BASOPHILS % (AUTO) 0.2 % (0.0-2.0); EOSINOPHILS % (AUTO) 0.3 % (0.0-4.0); HEMATOCRIT 33.7 % (36-54); HEMOGLOBIN 11.9 g/dL (14.0-18.0); LYMPHOCYTES # (AUTO) 2.3 K/uL (1.0-5.5); MEAN CORPUSCULAR HEMOGLOBIN 32 pg (27-31); MEAN CORPUSCULAR HGB CONC 36 % (32-36); MEAN CORPUSCULAR VOLUME 92 fL (79.0-98.0); MONOCYTES % (AUTO) 9.5 % (1.7-9.3); NEUTROPHILS # (AUTO) 7.5 K/uL (1.8-7.7); PLATELET COUNT (AUTO) 203 K/uL (130-430); RED BLOOD CELL COUNT(AUTO) 3.68 MIL/uL (4.2-6.2); RED CELL DISTRIBUTION WIDTH 13.5 % (9.0-15.0); WHITE BLOOD COUNT (AUTO) 10.9 K/uL (4.8-10.8)
[2023-11-20 06:44] LABS: ALANINE AMINOTRANSFERASE 23 U/L (12-78); ALBUMIN 2.6 g/dL (3.4-4.8); ANION GAP 10 (5-15); ASPARTATE AMINOTRANSFERASE 16 U/L (10-37); CALCIUM 8.7 mg/dL (8.4-11.0); CARBON DIOXIDE 24 mmol/L (23-29); CHLORIDE 107 mmol/L (98-107); CREATININE 0.84 mg/dL (0.55-1.30); GLUCOSE 110 mg/dL (74-106); SODIUM SERUM 141 mmol/L (136-145); TOTAL BILIRUBIN 0.9 mg/dL (0.0-1.0); TOTAL PROTEIN, SERUM 6.4 g/dL (6.4-8.3); UREA NITROGEN, BLOOD 13 mg/dL (8-21)
[2023-11-20 07:08] LABS: THYROID STIMULATING HORMONE 1.35 uIu/mL (0.34-4.82)
[2023-11-20] MEDS: POTASSIUM CHLORIDE 20 MEQ TABLET.ER PO ONE (20:45)
[2023-11-21] VITALS (7 sets, daily range): BP systolic 144–190; PULSE 76–90; RESP 16–20; TEMP 97.2–99.6; O2SAT 95–98
[2023-11-21 06:11] LABS: BASOPHILS % (AUTO) 0.4 % (0.0-2.0); EOSINOPHILS # (AUTO) 0.2 K/uL (0.0-0.4); EOSINOPHILS % (AUTO) 1.9 % (0.0-4.0); HEMATOCRIT 32.6 % (36-54); HEMOGLOBIN 11.5 g/dL (14.0-18.0); LYMPHOCYTES # (AUTO) 2.9 K/uL (1.0-5.5); LYMPHOCYTES % (AUTO) 35.7 % (20.5-51.5); MEAN CORPUSCULAR HEMOGLOBIN 32 pg (27-31); MEAN CORPUSCULAR HGB CONC 35 % (32-36); MEAN CORPUSCULAR VOLUME 92 fL (79.0-98.0); MONOCYTES # (AUTO) 0.8 K/uL (0.0-1.0); MONOCYTES % (AUTO) 10.5 % (1.7-9.3); NEUTROPHILS # (AUTO) 4.1 K/uL (1.8-7.7); NEUTROPHILS % (AUTO) 51.5 % (40.0-70.0); PLATELET COUNT (AUTO) 214 K/uL (130-430); RED BLOOD CELL COUNT(AUTO) 3.54 MIL/uL (4.2-6.2)
[2023-11-21 06:28] LABS: ANION GAP 10 (5-15); CALCIUM 8.6 mg/dL (8.4-11.0); CARBON DIOXIDE 23 mmol/L (23-29); CHLORIDE 107 mmol/L (98-107); CREATININE 0.79 mg/dL (0.55-1.30); GLUCOSE 94 mg/dL (74-106); POTASSIUM 3.4 mmol/L (3.5-5.1); SODIUM SERUM 140 mmol/L (136-145); UREA NITROGEN, BLOOD 9 mg/dL (8-21)
[2023-11-21] MEDS: cloNIDine HCL 0.1 MG TABLET PO ONE (15:32)
[2023-11-21] MEDS: cloNIDine HCL 0.2 MG TABLET PO PRN (20:44)
[2023-11-21] MEDS: traMADol HCL HCL 50 MG TABLET (ULTRAM) PO PRN (20:45)
[2023-11-22] VITALS (8 sets, daily range): BP systolic 159–178; PULSE 69–75; RESP 16–18; TEMP 97–98; O2SAT 97–99
[2023-11-22] MEDS: hydrALAZINE HCL 25 MG TABLET PO SCH (08:50)
[2023-11-22] MEDS ORDERED: ZIT250 PO (10:22)
[2023-11-22] MEDS: BENZOCAINE/MENTHOL 1 EACH LOZENGE MM PRN (13:24)
[2023-11-22] MEDS ORDERED: ASPI-1393 PO (16:21)
== END 2023-11-22 17:15 | disposition home or self-care (01) | DRG 871 ==
LOC: SED 02:14 → STU 06:08
PROVIDERS: ADMIT Internal Medicine; ATTEND Internal Medicine
PROC: 4A00X4Z Measurement of Central Nervous Electrical Activity, External Approach (ICD-10-PCS; principal; 2023-11-22)
DX: A41.9 Sepsis, unspecified organism (principal); J18.9 Pneumonia, unspecified organism; N39.0 Urinary tract infection, site not specified; R55 Syncope and collapse; I95.1 Orthostatic hypotension; I49.9 Cardiac arrhythmia, unspecified; I10 Essential (primary) hypertension; E11.9 Type 2 diabetes mellitus without complications; E78.5 Hyperlipidemia, unspecified; Z85.46 Personal history of malignant neoplasm of prostate; Z87.891 Personal history of nicotine dependence; Z88.8 Allergy status to other drugs, medicaments and biological substances; R56.9 Unspecified convulsions
CPT/HCPCS: 36415; 70450-TC; 71045; 80048; 80053; 80076; 80307; 81000; 81001; 81015; 82948; 83735; 83880; 84443; 84484; 85025; 85610; 85730; 87086; 93005; 93880; 94640; 94760; 95816; 96360; 97116-GP; 97530-GP; 99285; G0378; G0482; J0456; J0696; J7050; J7614